=== PATIENT | female | born 1990 | race Caucasian/White ===

== ENCOUNTER 2016-08-02 02:15 | Emergency (ER) | payer SELFPAY ==
[~2016-08-02] VITALS: Ht 160 cm; Wt 69.4 kg
[2016-08-02 02:22] VITALS: BP 145/67
--- NOTE | 2016-08-02 02:29 | NUR ---
TO ER BED 4
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
[2016-08-02] MEDS ORDERED: methylPREDNISolone SS 125 MG in WATER STERILE 2 ML IM ONE (02:55)
[2016-08-02] MEDS ORDERED: diphenhydrAMINE 50 MG/ML VIAL IM ONE (02:55)
[2016-08-02] MEDS ORDERED: diphenhydrAMINE 50 MG/ML VIAL ONE (03:09)
[2016-08-02] MEDS ORDERED: methylPREDNISolone SS 125 MG/2 ML VIAL ONE (03:09)
[2016-08-02 03:42] VITALS: BP 145/67
--- NOTE | 2016-08-02 03:42 | NUR ---
Patient discharged with v/s stable. Written and verbal after care instructions given and explained. Patient alert, oriented and verbalized understanding of instructions. Ambulatory with steady gait. All questions addressed prior to discharge. ID band removed. Patient advised to follow up with PMD. Rx of BENADRYL AND PREDNISONE given. Patient educated on indication of medication including possible reaction and side effects. Opportunity to ask questions provided and answered.
== END 2016-08-02 03:42 | disposition home or self-care (01) ==
LOC: MED 02:20
DX: L50.8 Other urticaria (principal); L25.9 Unspecified contact dermatitis, unspecified cause; R03.0 Elevated blood-pressure reading, without diagnosis of hypertension
CPT/HCPCS: 96372; 99284; J1200; J2930